=== PATIENT | female | born 1945 | race Caucasian/White ===

== ENCOUNTER 2018-11-09 08:40 | Inpatient (IN) | payer MEDICARE, OTHER ==
[~2018-11-09] VITALS: Ht 160 cm; Wt 106.1 kg
[~2018-11-09 08:40] MED LIST: ACET325 PO; ALBU3IS INH; ALBU90OI INH; AMIO200 PO; BUPR100; CHOL10002 PO; DIET PILL; ELIQUIS5 MG PO; FERSU90EL PO; FLUC100 PO; FLUSAL2505 INH; FURO40 PO; GABA100 PO; HYDACE10B PO; HYDROCODONE; LANS15EC PO; LISI5 PO; LOSA25 PO; MAGNESIUM PO; MAGOXI400 PO; METO100ER PO; NASACORT10.8 ML; Norco 10-325 T1 EACH PO; OMEP20ER PO; POTCHL10ER PO; PRED10 PO; PRED20; SPIR25 PO; TIOT18 INH; TYLENOL325 MG PO
--- NOTE | 2018-11-11 10:06 | NUR ---
INTO [facility] ADMISSION STARTED. PATIENT WENT TO BATHROOM. IV DONE AND COMPUTER WORK STARTED DR AT BED SIDE DURING THIS
--- NOTE | 2018-11-11 18:46 | NUR ---
PT HAS "2 LARGE ABD HERNIA'S THAT HAVE BEEN THERE FOR A LONG TIME".
--- NOTE | 2018-11-12 05:11 | NUR ---
SHIFT SUMMARY PT A&O X4 T/O SHIFT. POD#1 L DAVID; DRESSING CDI X2 SITES. PPPX4; PT DENIES N/T IN EXT. PAIN MANAGED PER EMAR. CRYOTHERAPY TO L HIP T/O SHIFT. NO ACUTE CHANGES. UP WITH FWW, GAITBELT AND SBA TO TOILET. ELVIA'S AND SCD'S TO BLE'S. CALL LIGHT IN REACH; PT DEMONSTRATES USE. WCTM UNTIL REPORT TO DAY SHIFT RN.
[2018-11-12 05:12] LABS: BASOPHILS ABSOLUTE AUTO 0.02 K/mm3 (0.00-0.23); BASOPHILS PERCENT AUTO 0 % (0-2); EOSINOPHILS PERCENT AUTO 0 % (0-6); Hemoglobin 8.9 g/dL (11.5-16.0); IMMATURE GRAN ABSOLUTE AUTO 0.03 K/mm3 (0.00-0.10); IMMATURE GRAN PERCENT AUTO 0 % (0-1); LYMPHOCYTES PERCENT AUTO 9 % (21-46); MONOCYTES ABSOLUTE AUTO 1.18 K/mm3 (0.16-1.47); MONOCYTES PERCENT AUTO 11 % (4-13); Mean Corpuscular HGB 29.7 pg (26.0-34.0); Mean Corpuscular HGB Conc 31.8 g/dL (31.5-36.5); Mean Corpuscular Volume 93 fL (80-100); Mean Platelet Volume 10.5 fL (9.1-12.4); NEUTROPHILS ABSOLUTE AUTO 8.21 K/mm3 (1.96-9.15); NEUTROPHILS PERCENT AUTO 79 % (41-73); Platelet Count 294 K/mm3 (150-400); RDW Coefficient Variation 13.6 % (11.7-14.2); RDW Standard Deviation 46.9 fL (35.1-46.3); White Blood Cell Count 10.34 K/mm3 (4.00-11.30)
[2018-11-12 05:36] LABS: Bun/Creatinine Ratio 21.6 (12.0-20.0); Calcium, Blood 8.6 mg/dL (8.5-10.1); Creatinine, Blood 1.16 mg/dL (0.40-1.00); Potassium, Blood 4.5 mmol/L (3.5-5.5)
[2018-11-12] MEDS ORDERED: PROM25 PO (09:13)
[2018-11-12] MEDS ORDERED: Percocet 10-321 EACH PO (09:13)
--- NOTE | 2018-11-12 10:11 | NUR ---
11/12/18 1011 Ivette Curry VERIFICATIONS: EDIT CHART.
--- NOTE | 2018-11-12 10:13 | NUR ---
PT MED WITH ASP PRECAUTIONS IN PLACE WITHOUT DIFF.
--- NOTE | 2018-11-12 10:14 | NUR ---
PT WORKING WITH THERAPY.
--- NOTE | 2018-11-12 15:55 | NUR ---
DISCHARGE: PT EATING AND DRINKING, VOIDING, PASSING GAS. PT/CAREGIVER REPORT UNDERSTANDING OF DISCHARGE INSTRUCTIONS. IV OUT EARLIER PER PT REQ. PT PAIN TOLERABLE WITH PO PAIN MEDICATION. PT REPORTS HAVING APPR EQUIP AT HOME. PT SENT WITH DRESSING SUPPLIES AND POLAR PAC. PT CLEARED BY THERAPY TO GO HOME.
== END 2018-11-12 15:56 | disposition home or self-care (01) | DRG 470 ==
LOC: SURS 11-11 08:50 → PRE IP 11-11 10:30 → SURS 11-11 15:07
PROVIDERS: ADMIT Orthopaedic Surgery
PROC: 0SRB0JA Replacement of Left Hip Joint with Synthetic Substitute, Uncemented, Open Approach (ICD-10-PCS; principal; 2018-11-11 10:30)
DX: M16.12 Unilateral primary osteoarthritis, left hip (principal); M87.9 Osteonecrosis, unspecified; Z68.41 Body mass index [BMI] 40.0-44.9, adult; F17.210 Nicotine dependence, cigarettes, uncomplicated; E11.9 Type 2 diabetes mellitus without complications; I10 Essential (primary) hypertension; I48.91 Unspecified atrial fibrillation; J44.9 Chronic obstructive pulmonary disease, unspecified; E66.01 Morbid (severe) obesity due to excess calories
CPT/HCPCS: 36415; 72170; 80048; 82947; 83735; 85025; 86850; 86900; 86901; 88300; 94640; 94760; 97110; 97116; 97162; 97166; 97530; 97535; C1713; C1776; J0171; J0690; J1885; J2250; J2704; J2795; J3010; J3370; J7120

== ENCOUNTER → 2018-11-21 | Outpatient (CLI) | payer MEDICARE, OTHER ==
[~2018-11-21] MED LIST changes: +PROM25 PO; +Percocet 10-321 EACH PO
== END | disposition home or self-care (01) ==
LOC: LAB SHORT 09:46 → LAB EV 09:46
DX: L08.9 Local infection of the skin and subcutaneous tissue, unspecified (principal)
CPT/HCPCS: 87070; 87205

== ENCOUNTER 2018-12-05 18:37 | Emergency (ER) | payer MEDICARE, OTHER ==
[~2018-12-05] VITALS: Ht 162.6 cm; Wt 106.6 kg
[~2018-12-05 18:37] MED LIST changes: -FERSU90EL PO; +Ferrous Sulfat325 M2 PO; +MAGNESIUM CITR100 MG PO; -MAGNESIUM PO
[2018-12-05 19:21] LABS: BASOPHILS ABSOLUTE AUTO 0.06 K/mm3 (0.00-0.23); BASOPHILS PERCENT AUTO 1 % (0-2); EOSINOPHILS ABSOLUTE AUTO 0.28 K/mm3 (0.00-0.68); EOSINOPHILS PERCENT AUTO 3 % (0-6); Hematocrit 30.6 % (33.0-51.0); Hemoglobin 9.6 g/dL (11.5-16.0); IMMATURE GRAN ABSOLUTE AUTO 0.03 K/mm3 (0.00-0.10); IMMATURE GRAN PERCENT AUTO 0 % (0-1); LYMPHOCYTES ABSOLUTE AUTO 1.26 K/mm3 (0.84-5.20); LYMPHOCYTES PERCENT AUTO 16 % (21-46); MONOCYTES ABSOLUTE AUTO 0.85 K/mm3 (0.16-1.47); MONOCYTES PERCENT AUTO 10 % (4-13); Mean Corpuscular HGB 29.8 pg (26.0-34.0); Mean Corpuscular HGB Conc 31.4 g/dL (31.5-36.5); Mean Corpuscular Volume 95 fL (80-100); Mean Platelet Volume 10.2 fL (9.1-12.4); NEUTROPHILS ABSOLUTE AUTO 5.67 K/mm3 (1.96-9.15); NEUTROPHILS PERCENT AUTO 70 % (41-73); Platelet Count 370 K/mm3 (150-400); RDW Coefficient Variation 14.6 % (11.7-14.2); RDW Standard Deviation 50.6 fL (35.1-46.3); Red Blood Cell Count 3.22 M/mm3 (3.80-5.20); White Blood Cell Count 8.15 K/mm3 (4.00-11.30)
[2018-12-05 19:43] LABS: Albumin, Blood 2.9 g/dL (3.4-5.0); Albumin/Globulin Ratio 0.8 (0.8-1.8); Bilirubin, Total 0.2 mg/dL (0.1-1.0); Bun/Creatinine Ratio 15.5 (12.0-20.0); Calcium, Blood 8.6 mg/dL (8.5-10.1); Creatinine, Blood 1.16 mg/dL (0.40-1.00); Globulin, Blood 3.7 g/dL (2.2-4.0); Potassium, Blood 3.8 mmol/L (3.5-5.5); Total Protein, Blood 6.6 g/dL (6.4-8.2)
[2018-12-05] MEDS ORDERED: ONDA4ODT MM (21:22)
== END 2018-12-05 21:57 | disposition home or self-care (01) ==
LOC: ER 18:37
PROVIDERS: Emergency Medicine
DX: R11.2 Nausea with vomiting, unspecified (principal); R10.9 Unspecified abdominal pain; R60.0 Localized edema; I10 Essential (primary) hypertension; E11.9 Type 2 diabetes mellitus without complications; I48.91 Unspecified atrial fibrillation; J44.9 Chronic obstructive pulmonary disease, unspecified; Z79.899 Other long term (current) drug therapy; Z87.891 Personal history of nicotine dependence
CPT/HCPCS: 36415; 74177; 80053; 83690; 85025; 86850; 86900; 86901; 93971; 99284-25; A9270-GY; Q9967

== ENCOUNTER 2018-12-06 08:59 | Emergency (ER) | payer MEDICARE, OTHER ==
[~2018-12-06] VITALS: Ht 172.7 cm; Wt 113.4 kg
[~2018-12-06 08:59] MED LIST changes: +ONDA4ODT MM
== END 2018-12-06 10:43 | disposition home or self-care (01) ==
LOC: ER 08:59
DX: K43.9 Ventral hernia without obstruction or gangrene (principal); J45.909 Unspecified asthma, uncomplicated; I10 Essential (primary) hypertension; I48.91 Unspecified atrial fibrillation; J44.9 Chronic obstructive pulmonary disease, unspecified; Z87.891 Personal history of nicotine dependence; Z79.899 Other long term (current) drug therapy

== ENCOUNTER → 2019-08-07 | Outpatient (CLI) | payer MEDICARE, OTHER ==
[2019-08-08 14:56] LABS: Stool Occult Bld Immuno 1 Positive (NEGATIVE); Stool Occult Bld Immuno 2 Positive (NEGATIVE)
== END | disposition home or self-care (01) ==
LOC: LAB EV 01:30 → LAB SHORT 01:30 → LAB FUT 08-03 09:50
PROVIDERS: Internal Medicine Gastroenterology
DX: D50.9 Iron deficiency anemia, unspecified (principal)
CPT/HCPCS: 82274

== ENCOUNTER 2019-12-30 05:51 | Day surgery (SDC) | payer MEDICARE, OTHER ==
[~2019-12-30] VITALS: Ht 162.6 cm; Wt 122.0 kg
[~2019-12-30 05:51] MED LIST changes: +ALBU2.5V5; +Amiodarone HCl200 MG PO; +FLUT1DIS5 INH; +TRAM50 PO
--- NOTE | 2019-12-30 07:27 | NUR ---
200 J SYNCHRONIZED MICHELLE. PT TOLERATED WELL.
--- NOTE | 2019-12-30 07:30 | NUR ---
DERRICK RT WAS IN ROOM FOR CARDIOVERSION.
--- NOTE | 2019-12-30 07:47 | NUR ---
PT SITTING UP DRINKING WATER. CALL LIGHT IN REACH.
--- NOTE | 2019-12-30 08:19 | NUR ---
DISCHARGE INSTRUCTIONS REVIEWED ALL QUESTIONS ANSWERED. 20 G IV REMOVED FROM RIGHT AC WITH INTACT CANNULA. PT ESCORTED OUT VIA WHEELCHAIR ESCORT.
== END 2019-12-30 23:11 | disposition home or self-care (01) ==
LOC: MHTC 05:51
DX: I48.0 Paroxysmal atrial fibrillation (principal)
CPT/HCPCS: 92960; 93005; 93010; 99152; J2250; J3010; J7030

== ENCOUNTER → 2020-01-20 | Outpatient (CLI) | payer MEDICARE, OTHER | LOC: LAB SHORT 10:40 → LAB EV 10:40 | DX: R82.998 Other abnormal findings in urine (principal) | CPT/HCPCS: 87077; 87086; 87186 ==

== ENCOUNTER → 2020-02-09 | Outpatient (CLI) | payer MEDICARE, OTHER | LOC: LAB SHORT 08:20 → LAB EV 08:20 | DX: N39.0 Urinary tract infection, site not specified (principal) | CPT/HCPCS: 87077; 87086; 87186 ==

== ENCOUNTER 2020-10-11 12:30 | Day surgery (SDC) | payer MEDICARE, OTHER ==
[~2020-10-11] VITALS: Ht 162.6 cm; Wt 128.3 kg
== END 2020-10-11 16:00 | disposition home or self-care (01) ==
LOC: ORSCSDS 12:30
PROVIDERS: Internal Medicine Gastroenterology
PROC: 0DBL8ZX Excision of Transverse Colon, Via Natural or Artificial Opening Endoscopic, Diagnostic (ICD-10-PCS; principal; 2020-10-11 13:45)
PROC: 0DBK8ZX Excision of Ascending Colon, Via Natural or Artificial Opening Endoscopic, Diagnostic (ICD-10-PCS; principal; 2020-10-11 13:45)
PROC: 0D5K8ZZ Destruction of Ascending Colon, Via Natural or Artificial Opening Endoscopic (ICD-10-PCS; principal; 2020-10-11 13:45)
PROC: 0DBM8ZX Excision of Descending Colon, Via Natural or Artificial Opening Endoscopic, Diagnostic (ICD-10-PCS; principal; 2020-10-11 13:45)
DX: R19.5 Other fecal abnormalities (principal); D12.4 Benign neoplasm of descending colon; D12.2 Benign neoplasm of ascending colon; D12.3 Benign neoplasm of transverse colon; Q27.33 Arteriovenous malformation of digestive system vessel; K21.9 Gastro-esophageal reflux disease without esophagitis; D50.9 Iron deficiency anemia, unspecified; Z86.010 Personal history of colon polyps; I10 Essential (primary) hypertension; I25.2 Old myocardial infarction; I48.91 Unspecified atrial fibrillation; Z79.01 Long term (current) use of anticoagulants; J44.9 Chronic obstructive pulmonary disease, unspecified; Z99.81 Dependence on supplemental oxygen; E66.01 Morbid (severe) obesity due to excess calories; Z68.42 Body mass index [BMI] 45.0-49.9, adult; Z79.899 Other long term (current) drug therapy
CPT/HCPCS: 88305; J2704; J7120

== ENCOUNTER → 2020-11-16 | Outpatient (CLI) | payer MEDICARE, OTHER | END | disposition home or self-care (01) | LOC: LAB EV 12:13 → LAB SHORT 12:13 | PROVIDERS: Nurse Practitioner Family | DX: G89.4 Chronic pain syndrome (principal); Z79.899 Other long term (current) drug therapy | CPT/HCPCS: G0480 ==

== ENCOUNTER → 2021-01-23 | Outpatient (CLI) | payer MEDICARE, OTHER ==
[2021-01-26 13:32] LABS: Stool Occult Bld Immuno 1 Positive (NEGATIVE)
== END ==
LOC: LAB SHORT 11:30 → LAB EV 11:30 → LAB SHORT 01-26 07:15
PROVIDERS: Internal Medicine Gastroenterology
DX: R39.89 Other symptoms and signs involving the genitourinary system (principal)
CPT/HCPCS: 82274

== ENCOUNTER → 2023-03-14 | Outpatient (CLI) | payer MEDICARE, OTHER | END | disposition home or self-care (01) | LOC: LAB 15:08 → LAB SHORT 15:08 | DX: R82.90 Unspecified abnormal findings in urine (principal) | CPT/HCPCS: 87077; 87086; 87186 ==

== ENCOUNTER 2024-01-30 09:47 | Inpatient (IN) | payer MEDICARE, OTHER ==
[~2024-01-30] VITALS: Ht 160 cm; Wt 127.5 kg
[2024-01-30] VITALS (7 sets, daily range): BP systolic 114–130; BP diastolic 47–60
[2024-01-30 14:35] LABS: Bun/Creatinine Ratio 17.4 (12.0-20.0); Calcium, Blood 8.1 mg/dL (8.5-10.1); Creatinine, Blood 1.78 mg/dL (0.40-1.00); Potassium, Blood 4.4 mmol/L (3.5-5.5)
[2024-01-30 14:41] LABS: BASOPHILS ABSOLUTE AUTO 0.09 K/mm3 (0.00-0.23); BASOPHILS PERCENT AUTO 1 % (0-2); EOSINOPHILS ABSOLUTE AUTO 0.24 K/mm3 (0.00-0.68); EOSINOPHILS PERCENT AUTO 4 % (0-6); Hematocrit 19.3 % (33.0-51.0); IMMATURE GRAN ABSOLUTE AUTO 0.02 K/mm3 (0.00-0.10); IMMATURE GRAN PERCENT AUTO 0 % (0-1); LYMPHOCYTES PERCENT AUTO 16 % (21-46); MONOCYTES ABSOLUTE AUTO 0.94 K/mm3 (0.16-1.47); MONOCYTES PERCENT AUTO 14 % (4-13); Mean Corpuscular HGB 18.7 pg (26.0-34.0); Mean Corpuscular HGB Conc 26.9 g/dL (31.5-36.5); Mean Corpuscular Volume 69 fL (80-100); Mean Platelet Volume 12.5 fL (9.1-12.4); NEUTROPHILS ABSOLUTE AUTO 4.46 K/mm3 (1.96-9.15); NEUTROPHILS PERCENT AUTO 65 % (41-73); Platelet Count 332 K/mm3 (150-400); RDW Coefficient Variation 18.3 % (11.7-14.2); RDW Standard Deviation 45.2 fL (35.1-46.3); Red Blood Cell Count 2.78 M/mm3 (3.80-5.20); White Blood Cell Count 6.85 K/mm3 (4.00-11.30)
[2024-01-30] MEDS ORDERED: NS 1,000 ML IV ONE (14:42)
[2024-01-30 14:43] LABS: Hemoglobin 5.2 g/dL (11.5-16.0)
[2024-01-30] MEDS ORDERED: Norco 5-325 Ta1 EACH PO (17:27)
[2024-01-30] MEDS ORDERED: Zolpidem Tartrate 10 MG Tab PO PRN (17:30)
[2024-01-30] MEDS ORDERED: Ondansetron 4 MG TAB PO PRN (17:30)
[2024-01-30] MEDS ORDERED: Ondansetron HCl 2 MG / ML 2ML Vial IV PRN (17:35)
[2024-01-30] MEDS ORDERED: Albuterol HFA200 ACT/6.7 GM INH INH PRN (17:50)
[2024-01-30] MEDS ORDERED: Mometasone/Formoterol MDI 200/5 mcg 13 GM INH SCH (17:50)
[2024-01-30] MEDS ORDERED: Tiotropium Bromide 2.5 MCG/ACT MIST INHAL (10 ACT/4 GM) INH SCH (17:50)
--- NOTE | 2024-01-30 17:56 | NUR ---
PT ADMIT FROM ER. ALERT AND ORIENTED X4 AND ABLE TO MAKE NEEDS KNOWN. PURWICK IN PLACE. WHEEZING NOTED IN BILAT UPPER LOBES. 3+PITTING EDEMA BLE. 2L NC
[2024-01-30] MEDS ORDERED: NS 500 ML IV SCH (18:25)
[2024-01-30] MEDS ORDERED: HYDROcodone 5-APAP 325 TAB PO PRN (19:45)
[2024-01-30] MEDS ORDERED: Amiodarone HCl 200 MG Tab PO SCH (21:00)
[2024-01-30] MEDS ORDERED: Metoprolol Succinate 50 MG TABCR PO SCH (21:00)
[2024-01-30] MEDS ORDERED: Gabapentin 100 MG Cap PO SCH (21:00)
[2024-01-31] VITALS (9 sets, daily range): BP systolic 100–135; BP diastolic 50–76
[2024-01-31 05:30] LABS: Albumin, Blood 2.5 g/dL (3.4-5.0); Albumin/Globulin Ratio 0.8 (0.8-1.8); Bilirubin, Total 0.7 mg/dL (0.1-1.0); Bun/Creatinine Ratio 16.6 (12.0-20.0); Creatinine, Blood 1.57 mg/dL (0.40-1.00); Potassium, Blood 4.7 mmol/L (3.5-5.5); Total Protein, Blood 5.5 g/dL (6.4-8.2)
--- NOTE | 2024-01-31 05:56 | NUR ---
END OF SHIFT SUMMARY FINISHED INFUSING A TOTAL OF 2 UNITS PRBCS LAST NIGHT. PT SAYS SHE ALREADY FEELS BETTER. SHE IS NOT WEAK STANDING UP SHE WAS. NO S/S OF BLEEDING NOTED.
[2024-01-31 07:10] LABS: BASOPHILS ABSOLUTE AUTO 0.08 K/mm3 (0.00-0.23); BASOPHILS PERCENT AUTO 1 % (0-2); EOSINOPHILS ABSOLUTE AUTO 0.28 K/mm3 (0.00-0.68); EOSINOPHILS PERCENT AUTO 5 % (0-6); Hematocrit 22.7 % (33.0-51.0); Hemoglobin 6.7 g/dL (11.5-16.0); IMMATURE GRAN ABSOLUTE AUTO 0.02 K/mm3 (0.00-0.10); IMMATURE GRAN PERCENT AUTO 0 % (0-1); LYMPHOCYTES ABSOLUTE AUTO 1.13 K/mm3 (0.84-5.20); LYMPHOCYTES PERCENT AUTO 19 % (21-46); MONOCYTES ABSOLUTE AUTO 1.06 K/mm3 (0.16-1.47); MONOCYTES PERCENT AUTO 18 % (4-13); Mean Corpuscular HGB 21.8 pg (26.0-34.0); Mean Corpuscular HGB Conc 29.5 g/dL (31.5-36.5); Mean Platelet Volume 10.3 fL (9.1-12.4); NEUTROPHILS PERCENT AUTO 58 % (41-73); Platelet Count 305 K/mm3 (150-400); RDW Coefficient Variation 20.8 % (11.7-14.2); RDW Standard Deviation 54.4 fL (35.1-46.3); Red Blood Cell Count 3.08 M/mm3 (3.80-5.20); White Blood Cell Count 6.07 K/mm3 (4.00-11.30)
[2024-01-31 07:11] LABS: Mean Corpuscular Volume 74 fL (80-100)
[2024-01-31] MEDS ORDERED: Albuterol 2.5 MG/3 ML VIAL INH PRN (08:40)
[2024-01-31] MEDS ORDERED: Furosemide 10 MG/ML 4ML Vial IV ONE (09:20)
[2024-01-31] MEDS ORDERED: Nystatin 100,000 Unit/ML Susp 5 ML UDC SS SCH (12:00)
[2024-01-31] MEDS ORDERED: Losartan Potassium 25 MG Tab PO SCH (12:00)
[2024-01-31] MEDS ORDERED: Ipratropium/Albuterol SulF 2.5-0.5MG/3 ML Amp INH PRN (12:10)
[2024-01-31 15:09] LABS: Source, Urine Fem Cath
[2024-01-31 15:16] LABS: Appearance, Urine Clear (Clear); Bilirubin, Urine Neg (Neg); Blood, Urine Neg (Neg); Glucose Qualitative, Urine Neg (Neg); Ketones, Urine Neg (Neg); Leukocyte Esterase, Urine 1+ (Neg); Nitrite, Urine Pos (Neg); Protein, Urine Neg (Neg); Urobilinogen, Urine NORM (Normal)
[2024-01-31 15:22] LABS: Color, Urine Pale Yellow (P-Yellow)
[2024-01-31 15:24] LABS: Bacteria Many /hpf; Other Crystals Few /hpf; Red Blood Cells, Urine 0-2 /hpf (0-2); Squamous Epithelial Cells Few /hpf (Few)
[2024-01-31] MEDS ORDERED: Omeprazole 20 MG CapCR PO SCH (16:30)
[2024-01-31] MEDS ORDERED: NS 250 ML IV PRN (17:50)
[2024-01-31] MEDS ORDERED: CefTRIAXone Sodium 1,000 MG in NS 100 ML IV SCH (18:00)
--- NOTE | 2024-01-31 18:09 | NUR ---
SHIFT SUMMARY PT AOX4, 2 ASSIST TO THE BSC USING THE FWW. MEDICATED FOR PAIN PER THE EMAR. PURWICK IN PLACE FOR URGENCY, PT IS ON IV LASIX. 1 UNIT OF PRBC GIVEN THIS SHIFT. PT TOLERATED IT WELL. NO EVENTS PER TELE. PT REPOSITIONED THROUGHOUT THE SHIFT. SHE IS CONTINENT/INCONTINENT. CALL LIGHT WITHIN REACH, BED LOCKED AND IN THE LOWEST POSITION. WILL REPORT TO ONCOMING NURSE.
[2024-01-31] MEDS ORDERED: Gabapentin 300 MG Cap PO SCH (21:00)
--- NOTE | 2024-02-01 03:17 | NUR ---
SHIFT SUMMARY PT.IS A&O X4, TALKATIVE, ABLE TO MAKE HER NEEDS KNOWN. PT.C/O BACK, HIP BILATERALLY PAIN 01/20, MEDICATED WITH NORCO, WITH GOOD EFFECT (SEE EMAR.) PT. C/O PUREWICK NOT EFFECTIVE, DRAINING WELL, LIGHT YELLOW COLOR URINE, OUTPUT >600MLS W/I FIRST FEW HRS OF THE SHIFT, AND PT.WEARING ATTENDS. PT.C/O PAIN AROUND THE IV INSERTION AREA; NO INFLITRATION, REDNESS, SWELLING, LEAKAGE PER ASSESSMENT. PRN AMBIEN EFFECTIVE FOR C/O INSOMNIA DURING THIS SHIFT. TELE:NS@60'S. O2 2L VIA NC DURING THIS SHIFT.VSS.+2 EDEMA LE'S. ENCOURAGED TO ELEVATE LE'S WITH PILLOWS.LS WHEEZING UL'S, DIMINISHED LL'S. NO ACUTE EVENTS/DISTRESS NOTED/REPORTED DURING THIS SHIFT. CALL LIGHT WITHIN REACH, BED AT THE LOWEST POSITION. WILL HANDOFF TO THE INCOMING SHIFT NURSE.
--- NOTE | 2024-02-01 04:33 | NUR ---
NOTE FOR THE PROVIDER FROM THE PATIENT AT 0436: PER PT.REPORT "TELL HIM I WILL REFUSE LIQUID LASIX, AND I HAVE POTASSIUM AT HOME TOO, TAKE A FOUR A DAY." "BECAUSE I DON'T LIKE THIS PEEING LIKE THIS AND SQUIRTING, I CAN TAKE LASIX AT HOME, IT IS NOT NORMAL TO PEE THIS MUCH 12HRS LATER, I AM NOT REFUSING TO TAKE IT, I JUST WANT TO TAKE IT AT HOME (LASIX).
[2024-02-01 05:19] VITALS: BP 108/52
[2024-02-01 05:19] LABS: BASOPHILS ABSOLUTE AUTO 0.08 K/mm3 (0.00-0.23); BASOPHILS PERCENT AUTO 1 % (0-2); EOSINOPHILS ABSOLUTE AUTO 0.35 K/mm3 (0.00-0.68); EOSINOPHILS PERCENT AUTO 5 % (0-6); Hematocrit 26.9 % (33.0-51.0); Hemoglobin 7.9 g/dL (11.5-16.0); IMMATURE GRAN ABSOLUTE AUTO 0.03 K/mm3 (0.00-0.10); IMMATURE GRAN PERCENT AUTO 1 % (0-1); LYMPHOCYTES ABSOLUTE AUTO 1.48 K/mm3 (0.84-5.20); LYMPHOCYTES PERCENT AUTO 23 % (21-46); MONOCYTES ABSOLUTE AUTO 1.05 K/mm3 (0.16-1.47); MONOCYTES PERCENT AUTO 16 % (4-13); Mean Corpuscular HGB 22.5 pg (26.0-34.0); Mean Corpuscular HGB Conc 29.4 g/dL (31.5-36.5); Mean Corpuscular Volume 77 fL (80-100); Mean Platelet Volume 11.7 fL (9.1-12.4); NEUTROPHILS ABSOLUTE AUTO 3.46 K/mm3 (1.96-9.15); NEUTROPHILS PERCENT AUTO 54 % (41-73); Platelet Count 281 K/mm3 (150-400); RDW Coefficient Variation 22.5 % (11.7-14.2); RDW Standard Deviation 59.9 fL (35.1-46.3); Red Blood Cell Count 3.51 M/mm3 (3.80-5.20); White Blood Cell Count 6.45 K/mm3 (4.00-11.30)
[2024-02-01 05:47] LABS: Albumin, Blood 2.6 g/dL (3.4-5.0); Albumin/Globulin Ratio 0.9 (0.8-1.8); Bilirubin, Total 0.3 mg/dL (0.1-1.0); Bun/Creatinine Ratio 15.6 (12.0-20.0); Calcium, Blood 8.4 mg/dL (8.5-10.1); Creatinine, Blood 1.41 mg/dL (0.40-1.00); Globulin, Blood 2.9 g/dL (2.2-4.0); Potassium, Blood 3.9 mmol/L (3.5-5.5); Total Protein, Blood 5.5 g/dL (6.4-8.2)
[2024-02-01 08:11] VITALS: BP 115/65
[2024-02-01] MEDS ORDERED: Furosemide 10 MG/ML 4ML Vial IV ONE (09:00)
[2024-02-01] MEDS ORDERED: Amiodarone HCl 200 MG Tab PO SCH (09:00)
[2024-02-01] MEDS ORDERED: ALBU90OI INH (12:22)
[2024-02-01] MEDS ORDERED: Ventolin5 MG/1 ML INH (12:23)
[2024-02-01] MEDS ORDERED: NYSTATIN100000 U10 SS (12:31)
[2024-02-01] MEDS ORDERED: CEFP200 PO (12:32)
[2024-02-01] MEDS ORDERED: FURO40 PO (12:32)
[2024-02-01] MEDS ORDERED: OMEP20ER PO (12:56)
--- NOTE | 2024-02-01 15:37 | NUR ---
PT AWAKE AT START OF SHIFT. PT WANTING TO GO HOME. LUNGS T/O VERY WHEEZY. IV LASIX GIVEN. PT UP TO BSC AND CHAIR USING FWW AND 1P ASSIST. DR REYES IN TO SEE PT AND DISCUSS PLAN OF CARE. D/C ORDERS PLACED. MEDS FAXED PER PT REQUEST. PT DRESSED AND GATHERED BELONGINGS, THEN CALLED FOR RIDE. PT ASSISTED OUT TO CAR VIA W/C WITH ALL BELONGINGS.
== END 2024-02-01 14:03 | disposition home or self-care (01) | DRG 811 ==
LOC: ER 09:47 → MEDS 09:48
PROVIDERS: Student in an Organized Health Care Education/Training Program; ADMIT Internal Medicine
PROC: 30233N1 Transfusion of Nonautologous Red Blood Cells into Peripheral Vein, Percutaneous Approach (ICD-10-PCS; principal; 2024-01-30)
DX: D62 Acute posthemorrhagic anemia (principal); I50.31 Acute diastolic (congestive) heart failure; I13.0 Hypertensive heart and chronic kidney disease with heart failure and stage 1 through stage 4 chronic kidney disease, or unspecified chronic kidney disease; J44.1 Chronic obstructive pulmonary disease with (acute) exacerbation; N17.9 Acute kidney failure, unspecified; N39.0 Urinary tract infection, site not specified; B37.0 Candidal stomatitis; N18.30 Chronic kidney disease, stage 3 unspecified; I48.0 Paroxysmal atrial fibrillation; Z79.899 Other long term (current) drug therapy; D63.1 Anemia in chronic kidney disease; Z79.01 Long term (current) use of anticoagulants; Z79.51 Long term (current) use of inhaled steroids
CPT/HCPCS: 36415; 36430; 71046; 80048; 80053; 81001; 82272; 83880; 85025; 86850; 86900; 86901; 86920; 86923; 87077; 87086; 87186; 93005; 93010; 93306; 94640; 94664; 94760; 94762; 99285-25; A9270; J0696; J1940; J7030; J7040; P9016

== ENCOUNTER → 2024-02-24 | Outpatient (CLI) | payer MEDICARE, OTHER ==
[~2024-02-24] MED LIST changes: +CEFP200 PO; +NYSTATIN100000 U10 SS; +Norco 5-325 Ta1 EACH PO; +Ventolin5 MG/1 ML INH
[2024-02-26 08:59] LABS: Stool Occult Bld Immuno 1 Negative (NEGATIVE)
== END | disposition home or self-care (01) ==
LOC: LAB SHORT 07:57 → LAB 07:57
PROVIDERS: Nurse Practitioner Family
DX: D50.0 Iron deficiency anemia secondary to blood loss (chronic) (principal)
CPT/HCPCS: G0328

== ENCOUNTER → 2024-02-27 | Outpatient (CLI) | payer MEDICARE, OTHER ==
[2024-02-27 12:23] LABS: Stool Occult Bld Immuno 1 Negative (NEGATIVE)
== END | disposition home or self-care (01) ==
LOC: LAB 10:36 → LAB SHORT 10:36
PROVIDERS: Nurse Practitioner Family
DX: D50.0 Iron deficiency anemia secondary to blood loss (chronic) (principal)
CPT/HCPCS: G0328

== ENCOUNTER → 2024-02-28 | Outpatient (CLI) | payer MEDICARE, OTHER ==
[2024-03-02 14:47] LABS: Stool Occult Bld Immuno 1 Negative (NEGATIVE)
== END ==
LOC: LAB 11:29 → LAB SHORT 11:29 → LAB FUT 02-24 13:00
PROVIDERS: Nurse Practitioner Family
DX: D50.0 Iron deficiency anemia secondary to blood loss (chronic) (principal)
CPT/HCPCS: G0328